=== PATIENT | male | born 1975 | race Native Hawaiian/Other Pacific Islander ===

== ENCOUNTER 2017-04-03 04:09 | Emergency (ER) | payer OTHER ==
[2017-04-03 04:54] LABS: Basophils % (Auto) 0.7 % (0.0-1.8); Eosinophils % (Auto) 1.5 % (0.0-4.3); Hematocrit 44.2 % (35.5-45.6); Hemoglobin 15.3 gm/dl (11.8-15.2); Mean Corpuscular HGB Conc 35 % (32-34); Mean Corpuscular Hemoglobin 31 pg (28-32); Mean Corpuscular Volume 89 fl (84-94); Platelet Count 237 K/mm3 (140-440); Red Blood Count 4.98 M/mm3 (3.65-5.03); Red Cell Distribution Width 13.3 % (13.2-15.2); White Blood Count 10.3 K/mm3 (4.5-11.0)
[2017-04-03] MEDS ORDERED: MORPHINE IV ONE (05:04)
[2017-04-03] MEDS ORDERED: ZOFRAN IV ONE (05:04)
[2017-04-03 05:15] LABS: Alanine Aminotransferase 17 units/L (7-56); Albumin 4.3 g/dL (3.9-5); Albumin/Globulin Ratio 1.5 %; Alkaline Phosphatase 70 units/L (35-129); Anion Gap 15 mmol/L; BUN/Creatinine Ratio 22; Blood Urea Nitrogen 20 mg/dL (9-20); Calcium 9.4 mg/dL (8.4-10.2); Carbon Dioxide 26 mmol/L (22-30); Chloride 100.4 mmol/L (98-107); Glucose 154 mg/dL (75-100); Lipase 26 units/L (13-60); Potassium 3.6 mmol/L (3.6-5.0); Sodium 138 mmol/L (137-145); Total Protein 7.2 g/dL (6.3-8.2)
[2017-04-03 05:40] LABS: Bilirubin,Urine NEG (Negative); Blood,Urine SM (Negative); Ketones,Urine NEG (Negative); Leukocyte Esterase,Urine NEG (Negative); Mucus,Urine 1+ /HPF; Nitrite,Urine NEG (Negative); Protein,Urine <15 mg/dL mg/dL (Negative)
[2017-04-03] MEDS ORDERED: TORADOL IV ONE (05:45)
[2017-04-03] MEDS ORDERED: DILAUDID IV ONE (05:45)
--- NOTE | 2017-04-03 07:43 | Emergency Department Report ---
ED General Adult HPI - General Chief complaint: Abdominal Pain Stated complaint: RT SIDE PAIN Time Seen by Provider: 04/03/17 07:02 Source: patient, family Mode of arrival: Wheelchair Limitations: Language Barrier - History of Present Illness Initial comments: Patient complains of the onset of right lower quadrant abdominal pain which did not really radiate about 6 hours prior to arrival. Apparently according to triage he was sweating on arrival. He vomited several times. He was medicated prior to my arrival. On my encounter the patient states his pain is resolved. His skin is dry and he is in no distress. -: During the night Location: abdomen Radiation: non-radiation Severity scale (0 -10): 10 Quality: aching Consistency: now resolved Improves with: none Worsens with: none Associated Symptoms: denies other symptoms, diaphoresis, nausea/vomiting - Related Data Previous Rx's Medication Instructions Recorded Last Taken Type HYDROcodone/APAP 5-325 [[place] 1 each PO Q4HR PRN #14 tablet 04/03/17 Unknown Rx 5/325] Allergies Allergy/AdvReac Type Severity Reaction Status Date / Time No Known Allergies Allergy Verified 04/03/17 04:22 ED Review of Systems ROS: Stated complaint: RT SIDE PAIN Other details as noted in HPI Constitutional: diaphoresis. denies: chills, fever Eyes: denies: eye pain, eye discharge, vision change ENT: denies: ear pain, throat pain Respiratory: denies: cough, shortness of breath, wheezing Cardiovascular: denies: chest pain, palpitations Endocrine: no symptoms reported Gastrointestinal: as per HPI, abdominal pain, nausea, vomiting. denies: diarrhea Genitourinary: denies: urgency, dysuria Musculoskeletal: denies: back pain, joint swelling, arthralgia Skin: denies: rash, lesions Neurological: denies: headache, weakness, paresthesias Psychiatric: denies: anxiety, depression Hematological/Lymphatic: denies: easy bleeding, easy bruising ED Past Medical Hx - Past Medical History Previous Medical History?: No - Surgical History Past Surgical History?: No - Family History Family history: other (positive for kidney stones) - Social History Smoking Status: Never Smoker Substance Use Type: None - Medications Home Medications: Home Medications Medication Instructions Recorded Confirmed Last Taken Type HYDROcodone/APAP 5-325 [[place] 1 each PO Q4HR PRN #14 tablet 04/03/17 Unknown Rx 5/325] ED Physical Exam - General Limitations: No Limitations (history obtained in Slovenian) General appearance: alert, in no apparent distress - Head Head exam: Present: atraumatic, normocephalic - Eye Eye exam: Present: normal appearance - ENT ENT exam: Present: mucous membranes moist - Neck Neck exam: Present: normal inspection - Respiratory Respiratory exam: Present: normal lung sounds bilaterally. Absent: respiratory distress - Cardiovascular Cardiovascular Exam: Present: regular rate, normal rhythm. Absent: systolic murmur, diastolic murmur, rubs, gallop - GI/Abdominal GI/Abdominal exam: Present: soft, normal bowel sounds. Absent: distended, tenderness, guarding, rebound, rigid - Rectal Rectal exam: Present: deferred - Extremities Exam Extremities exam: Present: normal inspection - Back Exam Back exam: Present: normal inspection - Neurological Exam Neurological exam: Present: alert, oriented X3, CN II-XII intact. Absent: motor sensory deficit - Psychiatric Psychiatric exam: Present: normal affect, normal mood - Skin Skin exam: Present: warm, dry, intact, normal color. Absent: rash ED Course Vital Signs 04/03/17 04/03/17 04/03/17 04:22 04:46 05:11 Temperature 98.3 F 98.5 F Pulse Rate 60 50 L Respiratory 22 18 18 Rate Blood Pressure 139/83 Blood Pressure 119/77 [Right] O2 Sat by Pulse 100 100 Oximetry 04/03/17 06:02 Temperature Pulse Rate Respiratory 16 Rate Blood Pressure Blood Pressure [Right] O2 Sat by Pulse Oximetry - Reevaluation(s) Reevaluation #1: Patient remains completely comfortable. He's been counseled as to his diagnosis what to expect and the need for follow-up. 04/03/17 08:13 ED Medical Decision Making - Lab Data Result diagrams: 04/03/17 04:38 04/03/17 04:38 Laboratory Results - last 24 hr 04/03/17 04/03/17 04/03/17 04:38 04:38 05:12 WBC 10.3 RBC 4.98 Hgb 15.3 H Hct 44.2 MCV 89 MCH 31 MCHC 35 H RDW 13.3 Plt Count 237 Lymph % (Auto) 20.8 [place] % (Auto) 9.3 H Eos % (Auto) 1.5 Baso % (Auto) 0.7 Lymph # 2.1 [place] # 1.0 H Eos # 0.2 Baso # 0.1 Seg Neutrophils % 67.7 Seg Neutrophils # 7.0 Sodium 138 Potassium 3.6 Chloride 100.4 Carbon Dioxide 26 Anion Gap 15 BUN 20 Creatinine 0.9 Estimated GFR > 60 BUN/Creatinine Ratio 22 Glucose 154 H Calcium 9.4 Total Bilirubin 1.00 AST 16 ALT 17 Alkaline Phosphatase 70 Total Protein 7.2 Albumin 4.3 Albumin/Globulin Ratio 1.5 Lipase 26 Urine Color Yellow Urine Turbidity Clear Urine pH 6.0 Ur Specific [place] 1.025 Urine Protein <15 mg/dl Urine Glucose (UA) Neg Urine Ketones Neg Urine Blood Sm Urine Nitrite Neg Urine Bilirubin Neg Urine Urobilinogen 2.0 Ur Leukocyte Esterase Neg Urine WBC (Auto) 1.0 Urine RBC (Auto) 22.0 Urine Mucus 1+ - EKG Data -: EKG Interpreted by Me EKG shows normal: sinus rhythm, axis, intervals, QRS complexes, ST-T waves Rate: bradycardia - EKG Data Interpretation: no acute changes, other (early repolarization) - Radiology Data Radiology results: report reviewed interpreted by me: 2 mm kidney stone at the right UVJ with moderate Tracy. Critical care attestation.: If time is entered above; I have spent that time in minutes in the direct care of this critically ill patient, excluding procedure time. ED Disposition Clinical Impression: Renal colic on right side Disposition: DC-01 TO HOME OR SELFCARE Is pt being admited?: No Does the pt Need Aspirin: No Condition: Stable Instructions: Kidney Stones (ED), Renal Colic (ED) Additional Instructions: Return as needed in any significant pain or acute change. Otherwise follow-up with urologist. Prescriptions: HYDROcodone/APAP 5-325 [[place] 5/325] 1 each PO Q4HR PRN #14 tablet PRN Reason: Pain Referrals: PRIMARY CAREMD [Primary Care Provider] - 3-5 Days [facility] [Provider Group] - 3-5 Days Time of Disposition: 08:16
--- NOTE | 2017-04-03 07:50 | Cat Scan Report ---
FINAL REPORT EXAM: CT ABDOMEN PELVIS WO CON HISTORY: renal colic rlq? TECHNIQUE: Routine axial imaging was obtained of the abdomen pelvis without IV or oral contrast enhancement. FINDINGS: The lung bases do not show any infiltrates or effusions. The liver, gallbladder, pancreas, spleen, and adrenal glands appear normal. The left kidney reveals a punctate calcification along the upper pole. The right kidney is remarkable for [id number] hydronephrosis secondary to a partially obstructing 2 millimeter stone in the right UVJ. The bowel loops are normal in caliber. The appendix is not enlarged. There is no evidence of free fluid or adenopathy. In the pelvis the prostate gland and bladder otherwise are unremarkable. Bones and soft tissues appear well maintained. IMPRESSION: [id number]-[id number] right-sided hydronephrosis secondary to a 2 millimeter stone in the right UVJ.
[2017-04-03 08:55] VITALS: BP 109/71
== END 2017-04-03 08:49 | disposition home or self-care (01) ==
LOC: ED 04:09
DX: N23 Unspecified renal colic (principal)
CPT/HCPCS: 36415; 74176; 80053; 81001; 83690; 85025; 93005; 93010; 96374; 96375; 99284; J1170; J1885; J2270; J2405